=== PATIENT | male | born 1975 | race Caucasian/White ===

== ENCOUNTER 2022-01-04 13:40 | Emergency (ER) | payer BC | END 2022-01-04 14:34 | disposition home or self-care (01) | LOC: LB.ED 13:40 | DX: K04.7 Periapical abscess without sinus (principal); Z88.1 Allergy status to other antibiotic agents; Z72.0 Tobacco use | CPT/HCPCS: 99282 ==

== ENCOUNTER 2025-02-08 13:18 | Emergency (ER) | payer BC ==
[2025-02-08] MEDS: Sodium Chloride 0.9% 1,000 ML IV ONE ×2 (14:04→15:34)
[2025-02-08] MEDS: Iopamidol 612 MG/ML 100 ML Bottle IV SCH (14:29)
[2025-02-08] MEDS: Sodium Chloride 0.9% 50 ML SDV FLUSH ONE (14:29)
[2025-02-08] MEDS: Piperacillin/Tazobactam 3.375 GM in Sodium Chloride 0.9% 100 ML IV ONE (16:30)
[2025-02-08 17:05] LABS: INFLUENZA A NAA NEGATIVE (NEGATIVE); INFLUENZA B NAA NEGATIVE (NEGATIVE)
[2025-02-08 17:07] LABS: CORONAVIRUS COVID-19 NAA NEGATIVE (NEGATIVE)
== END 2025-02-08 17:30 | disposition home or self-care (01) ==
LOC: LB.ED 13:18
DX: K52.9 Noninfective gastroenteritis and colitis, unspecified (principal); F17.210 Nicotine dependence, cigarettes, uncomplicated; Z90.49 Acquired absence of other specified parts of digestive tract; Z88.8 Allergy status to other drugs, medicaments and biological substances; R19.7 Diarrhea, unspecified; D72.829 Elevated white blood cell count, unspecified
CPT/HCPCS: 0240U; 36415; 74177; 80053; 81001; 83605; 83690; 83735; 85025; 85651; 86141; 87086; 96361; 96365; 99283; 99284-25; J2543; J3490; J7030; Q9967